=== PATIENT | female | born 1970 | race Caucasian/White ===

== ENCOUNTER 2019-07-25 14:00 | Outpatient (RCR) | payer OTHER, SELFPAY ==
[2019-06-16 12:31] VITALS: BP_SYST 135; BP_SYST 170
--- NOTE | 2019-06-16 13:25 | PTOPEVAL ---
Thank you for referring this patient to [facility]. Please review, sign, date and return this plan of care JOHN PAUL. Pt referred to therapy to address multiple joints of impairments. Due to insurance restrictions, evaluation for shoulder's performed today. She requires additional skilled therapy to address impairment noted and improve UE function. Cont PT 2x/wk x 8 wk. I agree with and certify that the following plan of care is medically necessary. Referring Physician Date Attending Provider: Dr. Faheem Lombardo MD Referring Provider: MD Dr. Yanique Glasgow MD *PT Outpatient Evaluation Start: 06/16/19 12:32 Freq: Status: Active Protocol: Document 06/16/19 12:31 CAP (Rec: 06/16/19 13:24 CAP [id number]) Therapy Assessment Status Assessment Status Assessment Status Evaluation Outpatient Past Medical History Neurological History Hx Migraine Yes Cardiovascular History Hx Hypertension Yes Respiratory History Hx Bronchitis Yes Gastrointestinal History Hx Other Gastrointestinal Disorders Yes: obesity, BMI: 49 Musculoskeletal History Hx Arthritis Yes: ankle: right, knee, back, shoulders, hands Hx Back Pain Yes: disc prolapse, low back pain with stenosis Hx Fibromyalgia Yes Hx Orthopedic Surgery Yes: right RTC repair 2016 Hx Rheumatoid Arthritis Yes Hx Other Musculoskeletal Disorders Yes: connective tissue disorder HEENT History Hx Cataracts Yes Hx Glaucoma Yes Integumentary History Hx Eczema Yes Hx Other Skin Disorders Yes: adult acne Psychosocial History Hx Depression Yes Pain History Has Past Pain Affected Your Daily Life Yes History of Long-Term Prescription Pain Yes Medication Use (Opiates) Evaluation Information Problem Diagnosis boo shoulder tendinopathy with s/p right RTC repair Onset 2017 Cause falls Subjective Information Reports she has been having Query Text:As Reported By Patient/ issues with her shoulders for Family a few a years. She tore the RTC on right during a fall. She is s/p RTC repair on right November 2016. She received PT for 1 month after surgery. Then she had a 2nd surgery . She had additional therapy following the 2nd surgery. States her right UE is not a 100%.
--- NOTE | 2019-07-18 11:04 | PCPTNOTE ---
Patient called & cancelled scheduled appointment this date due to being sick.
[2019-07-25 14:00] VITALS: BP_SYST 160; BP_SYST 98
--- NOTE | 2019-07-25 14:48 | PTOPEVAL ---
Thank you for referring this patient to [facility]. Please review, sign, date and return this plan of care JOHN PAUL. Pt seen for 8 therapy visits to address boo shoulder impairments due to this was pt's primary compliant of pain. She demonstrates a decline with left shoulder range and strength and slight changes on right UE. No changes with UE pain or radiating symptoms. No progress noted towards therapy goals. No additional therapy planned at this time for shoulder impairments. Pt to contact our facility if she wants to address the other areas of impairments. I agree with and certify that the following plan of care is medically necessary. Referring Physician Date Admitting Provider: Attending Provider: PHYSICIAN NOT ON STAFF Referring Provider: Dr. Munira Simpson MD, Dr. Yanique Bryant MD, Dr. Chandan Muñiz MD *PT Outpatient Evaluation Start: 06/16/19 12:32 Freq: Status: Active Protocol: Document 07/25/19 14:00 [facility] (Rec: 07/25/19 14:48 CAP [id number]) Therapy Assessment Status Assessment Status Assessment Status Re-evaluation Outpatient Past Medical History Neurological History Hx Migraine Yes Cardiovascular History Hx Hypertension Yes Respiratory History Hx Bronchitis Yes Gastrointestinal History Hx Other Gastrointestinal Disorders Yes: obesity, BMI: 49 Musculoskeletal History Hx Arthritis Yes: ankle: right, knee, back, shoulders, hands Hx Back Pain Yes: disc prolapse, low back pain with stenosis Hx Fibromyalgia Yes Hx Orthopedic Surgery Yes: right RTC repair 2017 Hx Rheumatoid Arthritis Yes Hx Other Musculoskeletal Disorders Yes: connective tissue disorder HEENT History Hx Cataracts Yes Hx Glaucoma Yes Integumentary History Hx Eczema Yes Hx Other Skin Disorders Yes: adult acne Psychosocial History Hx Depression Yes Pain History Has Past Pain Affected Your Daily Life Yes History of Long-Term Prescription Pain Yes Medication Use (Opiates) Evaluation Information Problem Diagnosis boo shoulder tendinopathy with s/p right RTC repair Onset 2017 Cause falls Subjective Information She does feel like the Query Text:As Reported By Patient/ shoulder injections did help Family her pain, but the relief has worn off. She is trying to perform her HEP 1x/day. She uses ice and heat at home for the pain. She cont to report burning sensation of left UE with any
--- NOTE | 2019-08-22 09:49 | PCPTNOTE ---
Admitting Provider: Attending Provider: PHYSICIAN NOT ON STAFF Patient:Anne Antony Date of :1970 Patient has not returned for any further treatments since 07/25/2019, therefore she will be discharged from therapy at this time. The goals have been partially achieved. Thank you for referring this patient to [facility]. Please review, sign, date and return this discharge summary JOHN PAUL. I have been updated about the patient's current status and I agree with discharge from the above service at this time. Referring Physician Date
== END 2019-08-23 08:03 | disposition home or self-care (01) ==
LOC: ANHPT 14:00
DX: M19.90 Unspecified osteoarthritis, unspecified site (principal)
CPT/HCPCS: 97035; 97110; 97140; 97163

== ENCOUNTER 2020-02-29 13:30 | Outpatient (RCR) | payer OTHER, SELFPAY ==
--- NOTE | 2020-02-01 13:43 | PTOPEVAL ---
PHYSICAL THERAPY EVALUATION AND PLAN OF CARE Thank you for referring Anne Antony to [facility]. Anne is scheduled to participate in PT 1-2x/week for 4 weeks. Please review, sign, date and return this plan of care JOHN PAUL. I agree with and certify that the following plan of care is medically necessary. Referring Physician Date Attending Provider: Liz Mc, CUSTOMS AND IMMIGRATION OFFICER Evaluation Diagnosis low back pain Onset 10 years Cause insidious Subjective Information Anne is here today with Query Text:As Reported By Patient/ chronic severe lower and Family thoracic back pain. She has been treating it with Tramadol , lidocane patches, radiofrequency treamtents, oral and injection steroids, and moist heat. 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 Also reports that she likely had Covid-19 in August and now she gets short of breath easily. Reports numbness in toes that she reports in constant. Reports burning and sometimes sharp pains. Previous Treatments Previous Treatments For This Problem tramadol, lidocane patches, radiofrequency treatment to burn nerves Self Report Pain Assessment Lower Spine, Lumbar Reported Pain Level 7 Pain Description Burning,Radiating,Sharp Pain Frequency Chronic,Continuous Lowest Pain Intensity 6 Greatest Pain Intensity 9 Pain Aggravating Factors Bending,Lifting,Prolonged Position,Sitting,Stair Climbing,Supine,Walking,Weight Bearing/Standing Pain Behaviors Grimacing,Guarding,Teary Eyed/ Crying Pain Relief Interventions Used By Heat,Medication Patient Pain Score Pain Score 7: Self Report Cervical and Lumbar ROM Lumbar ROM Lumbar Flexion (0-90) 15 Query Text:Active in Degrees Lumbar Extension (0-40) 15 Query Text:Active in Degrees Lateral Rotation Right (0-45) 10 Query Text:Active in Degrees Lateral Rotation Left (0-45) 10 Query Text:Active in Degrees Lumbar Comments points to left SIJ and associated regions as w
--- NOTE | 2020-02-21 11:39 | PCPTNOTE ---
Patient did not show up for scheduled appointment this date; Called and left voicemail reminded of scheduled re-eval 02/28/2020 at 12:30
--- NOTE | 2020-02-29 14:33 | PTOPEVAL ---
PHYSICAL THERAPY PLAN OF CARE UPDATE AND PROGRESS REPORT Thank you for referring Anne Antony to [facility].? The patient is scheduled to be seen for therapy 1-2x/week for 4 weeks. She attended initial evaluation and one treatment. Please review, sign, date and return this plan of care JOHN PAUL. I agree with and certify that the following plan of care is medically necessary. Referring Physician Date Attending Provider: Liz Mc, YARN SKEINS EXAMINER Diagnosis low back pain Onset 10 years Cause insidious Subjective Information Anne is here today for re- Query Text:As Reported By Patient/ evaluation. She attended one Family treatment after initial evaluation and cancelled one appointment and no showed one appointment. Reports that she has had several radiofrequency treatments that will hopefully help mitigate her pain. She is having epidural injections to the thoracic spine. Otherwise her pain currently remains unchanged. States as though she does have a different pain since the radiofrequency treatments and also states that her fibromayalgia increases her pain from inflammation. Self Report Pain Assessment Lower Spine, Lumbar Reported Pain Level 7 Pain Description Burning,Radiating,Sharp Pain Frequency Chronic,Continuous Pain Aggravating Factors Bending,Lifting,Prolonged Position,Sitting,Stair Climbing,Supine,Walking,Weight Bearing/Standing Pain Behaviors Grimacing,Guarding Pain Score Pain Score 7: Self Report Cervical and Lumbar ROM Lumbar ROM Lumbar Flexion (0-90) 30 Query Text:Active in Degrees Lumbar Extension (0-40) 15 Query Text:Active in Degrees Lateral Rotation Right (0-45) 20 Query Text:Active in Degrees Lateral Rotation Left (0-45) 20 Query Text:Active in Degrees Lumbar Comments points to left SIJ and associated regions as worst Lower Extremity Muscle Strength Testing Hip Strength Right Hip Flexion Strength 5 Normal Hip Extension Strength 4- Good - Hip Abduction Strength 4 Good Left Hip Flexion Strength 4 Good Hip Extension Strength 3+ Fair + Hip Abduction Str
--- NOTE | 2020-04-10 16:38 | PCPTNOTE ---
PHYSICAL THERAPY DISCHARGE NOTE Attending Provider: Liz Mc, SENIOR JAVASCRIPT ENGINEER Patient:Anne Antony Date of :1970 Patient has not returned for any further treatments since 02/29/2020, therefore she will be discharged at this time. Patient?s initial visit was on 02/01/2020 10:00 and she had a total of 2 visits. She did not respond to phone calls to schedule further appointments. The goals have not been met. Thank you for referring this patient to [facility]. Please review, sign, date and return this discharge summary JOHN PAUL. I have been updated about the patient's current status and I agree with discharge from the above service at this time. Referring Physician Date
== END 2020-04-11 10:39 | disposition home or self-care (01) ==
LOC: ANHPT 13:30
PROVIDERS: Visit Provider Nurse Practitioner Adult Health
DX: M54.5 Low back pain (principal)
CPT/HCPCS: 97110; 97162

== ENCOUNTER 2020-05-31 15:34 | Emergency (ER) | payer OTHER, SELFPAY ==
[2020-05-31] VITALS (8 sets, daily range): BP systolic 104–135; BP diastolic 62–80; PULSE 96–111; RESP 11–22; TEMP 36.6; O2SAT 97–100
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
--- NOTE | 2020-05-31 16:13 | ECG_ITS ---
Measurements Intervals [place] Rate: 102 P: 65 AR: 172 QRS: 93 QRSD: 161 T: 28 QT: 385 QTc: 502 Interpretive Statements SINUS TACHYCARDIA RIGHT BUNDLE BRANCH BLOCK BASELINE ARTIFACT- I, III, AVR, AVL, AVF ABNORMAL ECG Electronically Signed On 05-31-2020 17:38:02 POLE FRAMER MACHINE by Regis Bagley D.O.
[2020-05-31] MEDS: MORPHINE SULFATE (*CRX) 2 MG/ML INJ IV PUSH (17:13)
[2020-05-31 17:41] LABS: Basophils Absolute Auto 0.1 K/mm3 (0.0-0.1); Basophils Percent Auto 0.7 % (0.2-1.2); Eosinophils Absolute Auto 0.2 K/mm3 (0-0.3); Eosinophils Percent Auto 1.5 % (0-4.4); Hematocrit 38.2 % (37.0-47.0); Hemoglobin 12.7 g/dL (12.0-15.0); Immature Granulocyte Absolute 0.03 K/mm3 (0.00-0.031); Immature Granulocyte Percent A 0.3 % (0-0.5); Lymphocytes Percent Auto 11.5 % (18.3-44.2); Mean Corpuscular HGB Conc 33.2 g/dl (32-36); Mean Corpuscular Hemoglobin 30.4 pg (26-34); Mean Corpuscular Volume 91.4 fl (80-100); Mean Platelet Volume 9.8 fl (7.4-10.4); Monocytes Absolute Auto 0.9 K/mm3 (0.1-0.6); Monocytes Percent Auto 8.1 % (2.6-8.5); Neutrophils Absolute Auto 8.1 K/mm3 (1.3-6.7); Neutrophils Percent Auto 77.9 % (45.5-73.1); Platelet Count Result 307 k/mm3 (150-375); Red Blood Count 4.18 M/mm3 (4.2-5.4); Red Cell Distribution Width 15.3 % (11.5-14.5); White Blood Count 10.4 K/mm3 (4.5-10.0)
[2020-05-31 17:47] LABS: Add Urine Microscopic? YES; Appearance Urine Cloudy (Clear); Bilirubin Urine Negative (Negative); Blood Urine Negative (Negative); Color Urine Amber (Yellow); Glucose Urine UA Negative (Negative); Ketones Urine Negative (Negative); Leukocyte Esterase Ur Negative LEU/UL (Negative); Mucus Urine Rare /lpf; Nitrate Urine Negative (Negative); Protein Urine 1+ mg/dL (Negative); Specific Grav Ur 1.029 (1.001-1.035); Squamous Epithelial Cell Urine Few /hpf (Few); Urobilinogen Urine Negative mg/dL (<2.0); WBC Urine 0-3 /hpf
[2020-05-31 17:55] LABS: Alanine Aminotransferase 26 U/L (4-35); Albumin Level 3.4 g/dL (3.5-5.1); Alkaline Phosphatase 117 U/L (38-126); Anion Gap 2 mmol/L (8-16); Aspartate Amino Transferase 31 U/L (14-36); Bilirubin,Total 0.5 mg/dL (0.2-1.3); Blood Urea Nitrogen 29 mg/dL (7-17); Carbon Dioxide 33 mmol/L (22-30); Chloride 103 mmol/L (98-107); Estimated CRCL calculation 92 ml/min; Estimated Glomerular Filt Rate > 60; Glucose 133 mg/dL (65-105); Potassium 3.4 mmol/L (3.4-5.0); Sodium 138 mmol/L (137-145)
[2020-05-31] MEDS: diazePAM INJ (*CRX) 10 MG/2 ML SYRINGE 5 MG IV PUSH (18:10)
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
[2020-05-31] MEDS: KETOROLAC 30 MG/ML VIAL (*BKC) IV PUSH (19:06)
== END 2020-05-31 19:25 | disposition home or self-care (01) ==
PROVIDERS: Emergency Medicine Emergency Medical Services; Emergency Provider Emergency Medicine
DX: S16.1XXA Strain of muscle, fascia and tendon at neck level, initial encounter (principal); V49.40XA Driver injured in collision with unspecified motor vehicles in traffic accident, initial encounter; S20.212A Contusion of left front wall of thorax, initial encounter; M79.7 Fibromyalgia; E78.5 Hyperlipidemia, unspecified; E66.01 Morbid (severe) obesity due to excess calories; Z68.42 Body mass index [BMI] 45.0-49.9, adult; F32.9 Major depressive disorder, single episode, unspecified; I45.10 Unspecified right bundle-branch block; R94.31 Abnormal electrocardiogram [ECG] [EKG]
CPT/HCPCS: 36415; 71260; 72125; 74177; 80053; 81001; 85025; 93005; 96365; 96375; 99284; J0131; J1885; J2270; J3360; Q9967

== ENCOUNTER 2020-11-15 18:37 | Emergency (ER) | payer OTHER, SELFPAY ==
[2020-11-15 18:45] VITALS: BP 125/74; PULSE 97; RESP 18; TEMP 36.8; O2SAT 98
--- NOTE | 2020-11-15 18:55 | ED.FEMALEGU ---
HPI - Female Genitourinary General Chief complaint: Urogenital-Female Stated complaint: UTI Time Seen by Provider: 11/15/20 18:55 Source: patient Mode of arrival: ambulatory Limitations: no limitations History of Present Illness HPI Narrative: Anne Antony is a 50 yo female with a PMH of fibromyalcia, high cholesterol, HTN, depression, migraine, who comes to care for suspected urinary tract infection. Has had symptoms for a week, sometimes burning, frequency- pt is pre-diabetic. She has multiple other medical problems and is stressed out because she is moving to [place] with her daughter who is going to [place] Related Data Home Medications Medication Instructions Recorded Confirmed Cymbalta 05/31/20 atorvastatin 05/31/20 hydrochlorothiazide 05/31/20 irbesartan 05/31/20 memantine 20 mg PO DAILY 05/31/20 05/31/20 tramadol 05/31/20 Zinc 11/15/20 abatacept [Orencia ClickJect] mg SUBCUT 11/15/20 baclofen mg 11/15/20 biotin 11/15/20 ergocalciferol (vitamin D2) 11/15/20 leflunomide mg 11/15/20 meloxicam 11/15/20 metformin mg 11/15/20 propranolol 11/15/20 sumatriptan succinate mg PO 11/15/20 vitamin B complex tablet 11/15/20 Allergies Allergy/AdvReac Type Severity Reaction Status Date / Time oxycodone Allergy Unknown ITCHING, Verified 08/08/15 08:48 lisinopril Allergy Cough Verified 05/31/20 15:44 hydroxychloroquine AdvReac Other Verified 05/31/20 15:44 [From Plaquenil] Review of Systems Review of Systems: Narrative: CONSTITUTIONAL: Denies fever, chills, sweats. EYES: Denies visual changes, redness, discharge. ENT: Denies rhinorrhea, congestion, sore throat, otalgia. CARDIOVASCULAR: Denies chest pain, palpitations, edema. RESPIRATORY: Denies dyspnea, wheezing, cough GASTROINTESTINAL: Denies abdominal pain, nausea, vomiting, diarrhea. GENITOURINARY: has dysuria, hematuria, abnormal discharge SKIN: Denies rash or itching. NEUROLOGIC: Denies numbness, or focal weakness. PSYCHIATRIC: Denies anxiety or depression. [facility] Past Medical History Medical History (Updated 11/15/20 @ 19:15 by Noy Kennedy CNP) Arthritis Depression Fibromyalgia Hyperlipidemia Morbid obesity Prediabetes Surgical History Surgical History History of knee replacement Family History Family History Father Leukemia Other Hypertension Social History Social History (Updated 11/15/20 @ 19:13 by Noy Kennedy CNP) Smoking status: Never smoker Alcohol intake: current Comments At time of signature, I agree with nursing past medical, surgical, social and family history. There is no relevant family history pertinent to the presenting complaint. Exam Narrative: Exam Narrative: GENERAL: This is a well-nourished, well-developed patient, in mild distress. anxious HEAD: normocephalic, atraumatic. EYES:Sclera clear/white. Vision is grossly intact. EARS: External ears normal, Hearing grossly intact. NOSE: External nose normal without nasal discharge, nares without redness, no rhinorrhea. THROAT: Mucous membranes moist, NECK: Neck supple, non-tender CARDIOVASCULAR: Regular rate and rhythm without murmurs, gallops, or rubs. RESPIRATORY: Clear to auscultation. Breath sounds equal bilaterally. No wheezes, rales, or rhonchi. GASTROINTESTINAL: Abdomen soft, SKIN: warm, intact with no suspicious lesions or rash, good texture and turgor. NEURO: awake, alert, and oriented to person, place and time. There were no obvious focal neurologic abnormalities. Steady gait EXTREMITIES: Normal range of motion. BACK: Nontender without deformity Course Course Emergency Course: Patient came to urgent care with complaints of dysuria Urine dipstick showed positive protein but sent for culture Treated with Keflex for dysuria because patient is going to be leaving town soon Vital Signs
== END 2020-11-15 19:18 | disposition home or self-care (01) ==
PROVIDERS: Emergency Provider Nurse Practitioner
DX: R30.0 Dysuria (principal); M19.90 Unspecified osteoarthritis, unspecified site; M79.7 Fibromyalgia; R73.03 Prediabetes; E66.01 Morbid (severe) obesity due to excess calories; Z68.38 Body mass index [BMI] 38.0-38.9, adult
CPT/HCPCS: 81003; 87086; 87088; 99213; G0463